=== PATIENT | male | born 1985 | race Caucasian/White ===

== ENCOUNTER 2017-07-28 00:15 | Emergency (ER) | payer SELFPAY ==
[~2017-07-28] VITALS: Ht 185.4 cm; Wt 63.6 kg
[2017-07-28] MEDS ORDERED: CLINDAMYCIN 600 MG/D5% WATER 50 ML IV ONE (00:45)
[2017-07-28] MEDS ORDERED: BACITRACIN 0.9 GM PACKET OINTMENT TP ONE (00:45)
[2017-07-28 02:28] VITALS: BP 132/71
== END 2017-07-28 02:31 | disposition home or self-care (01) ==
LOC: EMS 00:17
DX: L03.116 Cellulitis of left lower limb (principal); L03.115 Cellulitis of right lower limb; F17.210 Nicotine dependence, cigarettes, uncomplicated; Z59.0 Homelessness
CPT/HCPCS: 73610; 96365; 99284; J3490